=== PATIENT | female | born 1960 | race Asian ===

== ENCOUNTER 2020-02-10 21:30 | Emergency (ER) | payer OTHER ==
[~2020-02-10] VITALS: Ht 160 cm; Wt 55.8 kg
[2020-02-10 22:05] VITALS: BP_SYST 157
[2020-02-10] MEDS ORDERED: AMLO2.5T2 PO (22:22)
[2020-02-11] MEDS ORDERED: LIDOCAINE 1% 10 MG/ML, 20 ML MDV INJ ONE (01:30)
[2020-02-11] MEDS ORDERED: DIPH-TET-PERTUS Vaccine 0.5 ML VIAL (ADACEL) I.M. ONE (01:58)
[2020-02-11 02:36] VITALS: BP_SYST 157
[2020-02-11] MEDS ORDERED: BACITRACIN 1 GM OINT TP ONE (02:41)
== END 2020-02-11 02:35 | disposition home or self-care (01) ==
LOC: SED 21:30
DX: S42.201A Unspecified fracture of upper end of right humerus, initial encounter for closed fracture (principal); S01.81XA Laceration without foreign body of other part of head, initial encounter; W22.8XXA Striking against or struck by other objects, initial encounter; Y93.89 Activity, other specified; Y92.89 Other specified places as the place of occurrence of the external cause; Y99.8 Other external cause status
CPT/HCPCS: 70450-TC; 73030; 90715; 99284